=== PATIENT | male | born 1965 | race Caucasian/White ===

== ENCOUNTER 2024-01-08 14:46 | Emergency (ER) | payer OTHER, SELFPAY ==
[2024-01-08 14:54] VITALS: BP 147/83
[2024-01-08] MEDS: ADACEL 0.5 ML IM (16:32)
--- NOTE | 2024-01-08 23:15 | ED.SKININJ ---
HPI-Injury
General
Chief Complaint: Skin Surface Trauma
Source: patient
Exam Limitations: none
Time Seen by Provider: 01/08/24 15:45
Nursing documentation reviewed up to this point in time: agreed with
History of Present Illness-Injury
Is this injury a work related problem?: No
Is pt an associate of [facility]/[place]?: No
Initial Injury comments:
Accidentally cut leg with chain saw. Sustained lac to left lateral proximal calf, multple small superficial abrasions to distal lateral calf and laceratioin to left lateral ankle. Incident occured just [employer]. Brought self to ED for eval.
Past History
Past History
ED Past Medical History: Other (Spinal stenosis)
ED Past Surgical History: Orthopedic
Review of Systems
Review of Systems
Allergies reviewed?: Yes
All Other Systems: ROS reviewed and negative except as documented in HPI and ROS
Constitutional: Reports no symptoms
Musculoskeletal: Reports no symptoms
Skin: Reports other (laceration x 2 to left lateral calf, multiple superficial abrasions)
Neurological: Reports no symptoms
Psychiatric: Reports no symptoms
Course
Orders/Labs/Results
Orders:
Orders
01/08/24 16:18
Tetanus/Diphth/Acelpertussis [Adacel] 0.5 ml IM .ONCE ONE
Vital Signs
Initial and Last Documented VS:
Initial Vital Signs
Temp Pulse Resp BP Pulse Ox
98.9 F 84 20 147/83 97
01/08/24 14:54 01/08/24 14:54 01/08/24 14:54 01/08/24 14:54 01/08/24 14:54
Last Documented Vital Signs
Temp Pulse Resp BP Pulse Ox
98.9 F 84 20 147/83 97
01/08/24 14:54 01/08/24 14:54 01/08/24 14:54 01/08/24 14:54 01/08/24 14:54
ED Attending Note
-
Portions of this chart may have been created with voice recognition software.� Occasional wrong word or��sound alike� substitutions may have occurred due to the inherent limitations of voice recognition software.
Discharge Plan
Departure
Patient Disposition: Home (Routine Discharge)
Date of Disposition: 01/08/24
Time of Disposition: 16:19
Patient with high blood pressure during this ER visit?: No
Condition: Good
Covid-19: Not Applicable
Discharge Problem:
Laceration of leg
Instructions: Laceration Repair With Stitches (DC)
Prescriptions:
No Action
docusate sodium 100 mg Capsule
100 mg PO BID Qty: 30 0RF
pregabalin 75 mg Capsule
75 mg PO Q12H Qty: 15 0RF
Rx Instructions:
Take twice a day for 5 days, then once daily for 5 days, then STOP.
famotidine 20 mg Tablet
20 mg PO HS Qty: 30 0RF
Rx Instructions:
Take nightly while on post-op pain meds to prevent GI upset.
oxycodone 5 mg Tablet
5 - 10 mg PO Q6H PRN (Reason: moderate-severe pain) Qty: 30 0RF
Rx Instructions:
1 tab for moderate pain, 2 if severe.
Dx lami
sennosides [Senna Lax] 8.6 mg Tablet
17.2 mg PO BID Qty: 30 0RF
acetaminophen [Pain Relief ES (acetaminophen)] 500 mg Tablet
1,000 mg PO Q6H Qty: 60 0RF
Rx Instructions:
DO NOT exceed >4000 mg daily.
ondansetron HCl 4 mg tablet
4 mg PO Q6H PRN (Reason: nausea and vomiting) Qty: 30 0RF
Rx Instructions:
Can take 1/2 hour prior to Oxycodone if experiencing recurrent nausea.
cephalexin 500 mg tablet
500 mg PO QID Qty: 20 0RF
Saccharomyces boulardii [Florastor] 250 mg capsule
250 mg PO BID Qty: 10 0RF
Rx Instructions:
Over the counter. Take while on antibiotic.
If unavailable, choose a different probiotic.
tamsulosin [Flomax] 0.4 mg capsule
0.4 mg PO DAILY Qty: 20 0RF
Activity Restrictions/Additional Instructions:
Sutures can be removed by your family doctor in 7-10 days.
Interventions
Interventions:
*Risk Screen - Suicide Last Done: 01/08/24 14:59
*General Assessment Last Done: 01/08/24 14:59
*Neglect/Abuse Screening Last Done: 01/08/24 14:59
*ED COVID-19 Vaccine History Last Done: 01/08/24 14:59
*Nursing Disposition Last Done: 01/08/24 16:46
ED-Skin Assessment Last Done: 01/08/24 16:08
Discharge Date and Time
Discharge Date/Time: 01/08/24 16:47
Print Language: ARABIC
== END 2024-01-08 16:47 | disposition home or self-care (01) ==
LOC: EMR 14:46
PROVIDERS: EMERGENCY PHYSICIAN Emergency Medicine; FAMILY PHYSICIAN Nurse Practitioner
DX: S81.812A Laceration without foreign body, left lower leg, initial encounter (principal); W29.3XXA Contact with powered garden and outdoor hand tools and machinery, initial encounter; Z23 Encounter for immunization
CPT/HCPCS: 99282; 90471; 90715

== ENCOUNTER → 2024-02-19 16:08 | Outpatient (REF) | payer OTHER, SELFPAY | LOC: HWRAD 16:08 | PROVIDERS: ATTENDING PHYSICIAN Nurse Practitioner Family | DX: S81.812A Laceration without foreign body, left lower leg, initial encounter (principal) | CPT/HCPCS: 73610 ==

== ENCOUNTER 2024-06-17 04:50 | Emergency (ER) | payer OTHER, SELFPAY ==
[2024-06-17 04:54] VITALS: BP 190/85; BMI 31.5
[2024-06-17 05:00] VITALS: BP 181/81
[2024-06-17 05:28] LABS: % Basophils 0.3 % (0-2); % Eosinophils 2.4 % (0-6); % Immature Granulocytes 0.3 % (0-0.5); % Lymphocytes 38.1 % (20.5-51.1); % Monocytes 8.1 % (1.7-9.3); % Neutrophils 50.8 % (42.2-75.2); Absolute Eosinophils 0.1 10^3/uL (0-0.7); Absolute Lymphocytes 1.3 10^3/uL (1.2-3.4); Absolute Monocytes 0.3 10^3/uL (0.1-0.6); Absolute Neutrophils 1.7 10^3/uL (1.4-6.5); Hematocrit 42.6 % (39.0-52.0); Hemoglobin 14.8 g/dL (13.0-18.0); Mean Corp Hgb Conc. 34.7 g/dL (33.0-37.0); Mean Corpuscular Hgb 30.6 pg (27.0-31.0); Mean Corpuscular Volume 88.2 fL (80.0-94.0); Mean Platelet Volume 8.7 fL (7.4-10.4); Nucleated Red Blood Cells % 0 % (-); Platelet Count 188 10^3/uL (130-400); Red Blood Cell Count 4.83 10^6/uL (4.70-6.10); Red Cell Dist. Width 11.8 % (11.5-14.5); White Blood Cell Count 3.3 10^3/uL (4.8-10.8)
[2024-06-17 05:42] LABS: ALT (SGPT) 30 U/L (0-50); AST (SGOT) 28 U/L (17-59); Albumin 4.3 g/dl (3.5-5.0); Alkaline Phosphatase 70 U/L (38-126); Blood Urea Nitrogen 25 mg/dl (9-20); Calcium 8.9 mg/dl (8.4-10.2); Carbon Dioxide 26 mmol/L (22-30); Chloride 107 mmol/L (98-107); Estimated Creatinine Clearance 120 ml/min; Glucose 121 mg/dl (70-99); Potassium 4.4 mmol/L (3.5-5.1); Sodium 142 mmol/L (135-145); Total Bilirubin 0.8 mg/dl (0.2-1.3); Total Protein 6.8 g/dl (6.3-8.2); eGFR > 60.00
[2024-06-17 05:45] LABS: Troponin I < 0.012 ng/ml
--- NOTE | 2024-06-17 05:57 | ED.GENMED ---
History of Present Illness
General
Chief Complaint: Chest Pain
Time Seen by Provider: 06/17/24 04:59
History of Present Illness
History of Present Illness:
59-year-old male with no reported past medical history presenting to the emergency department for intermittent chest pain. Patient reports since yesterday afternoon he has been having intermittent chest pain. Pain comes about every 5 minutes, only
lasts a few seconds and then resolves on its own. Denies exertional component. Denies ever having this in the past. Denies difficulty breathing. Denies any injury to the chest. Does note family history of cardiac disease, his father had several
heart attacks. Denies fever or cough. Denies any radiation of pain, with the pain located at the left side. Denies abdominal pain or GI symptoms. Denies additional acute medical complaints
Past History
Past History
ED Past Medical History: Other (Spinal stenosis)
ED Past Surgical History: Orthopedic
Phy Exam
Physical Exam
Physical Exam:
General: Well-appearing, no clinical signs of dehydration, nontoxic and in no acute distress
HEENT: protecting airway
Neck: appears supple
CV: Normal heart rate, regular rhythm
Resp: No accessory muscle use, no increased work of breathing, lungs clear to auscultation bilaterally
Abd: Soft and non-distended, no tenderness to palpation
Extremities: No deformities, no swelling, no erythema
Neuro: alert, no focal neurologic deficit
: deferred
Rectal: deferred
Psych: Normal affect
Skin: Intact
Scores
Heart Score for Chest Pain Patients
STEMI patient?: No
History: Slightly or Non-Suspicious
ECG: Normal
Age: >45 - <65 years
Risk Factors: 1 or 2 Risk Factors
Troponin: </= Normal Limit
Heart Score for Chest Pain Patients: 2
Heart Score Risk: 2.5% MACE over next 6 weeks
Course
Orders/Labs/Results
Orders:
Orders
06/17/24 04:51
Electrocardiogram (*1) Urgent
Reason for Study: Chest Pain
EKG- Treatment ONCE
06/17/24 05:11
Complete Blood Count/With Diff Urgent
Comprehensive Metabolic Panel Urgent
Troponin I Urgent
06/17/24 08:00
Troponin I Urgent
Abnormal Lab Results
06/17/24
05:11
WBC 3.3 L 10^3/uL
(4.8-10.8)
BUN 25 H mg/dl
(9-20)
Glucose 121 H mg/dl
(70-99)
06/17/24 05:11
06/17/24 05:11
Vital Signs
Initial and Last Documented VS:
Initial Vital Signs
Temp Pulse Resp BP Pulse Ox
97.8 F 63 14 190/85 96
06/17/24 04:54 06/17/24 04:54 06/17/24 04:54 06/17/24 04:54 06/17/24 04:54
Last Documented Vital Signs
Temp Pulse Resp BP Pulse Ox
97.8 F 65 35 181/81 100
06/17/24 04:54 06/17/24 05:00 06/17/24 05:00 06/17/24 05:00 06/17/24 04:55
MDM/Problems Addressed
MDM/Problems Addressed:
59-year-old male without significant past medical history presenting for left-sided chest pain. Vital signs on arrival are significant for high blood pressure.
On exam, patient resting comfortably, no acute distress or discomfort. Patient notes the pain is intermittent, not presently there. EKG obtained on arrival, sinus rhythm without acute evidence of ischemia. At this time lower suspicion for ACS,
however patient does have cardiac risk factors including family history. For this reason we will obtain laboratory analysis including troponin.
06:00 - Labs unremarkable, undetectable troponin. Patient remains stable. Given intermittent nature of pain, will obtain second troponin. Patient ultimately low risk by heart score with plan for discharge and outpatient cardiology follow-up for
potential stress testing
*EKG
Interpreted by ED Provider?: Yes
EKG Intrepretation Date: 06/17/24
EKG Intrepretation Time: 05:59
Interpretation: normal
Comparison EKG: no changes (08/01/23)
Heart Rate: 60
Rate: normal
Rhythm: sinus
Prichard: normal axis
Interval: first degree heart block
QRS Pattern: normal QRS
Ischemia: no ischemia
*Critical Care Note
Total Time (30-74mins, 75-104mins- exclusive of procedures): Not Applicable
ED Attending Note
-
Portions of this chart may have been created with voice recognition software.� Occasional wrong word or��sound alike� substitutions may have occurred due to the inherent limitations of voice recognition software.
Discharge Plan
Departure
Prescriptions:
No Action
No Current Medications
0
Referrals:
Cee Skinner CRNP [Family Provider] -
Interventions
Interventions:
*Risk Screen - Suicide Last Done: 06/17/24 04:54
*General Assessment Last Done: 06/17/24 04:54
*Neglect/Abuse Screening Last Done: 06/17/24 04:54
ED- Fall Risk Assessment Last Done: 06/17/24 04:59
*ED COVID-19 Vaccine History Last Done: 06/17/24 04:54
ED- Cardiac Assessment Last Done: 06/17/24 04:59
Discharge Date and Time
Print Language: [email or web address]
[2024-06-17 06:18] VITALS: BP 150/85
[2024-06-17 06:19] VITALS: BP 150/85
[2024-06-17 07:00] VITALS: BP 117/69
[2024-06-17 07:39] LABS: Troponin I < 0.012 ng/ml
== END 2024-06-17 07:40 | disposition home or self-care (01) ==
LOC: EMR 04:50
PROVIDERS: EMERGENCY PHYSICIAN Student in an Organized Health Care Education/Training Program; FAMILY PHYSICIAN Nurse Practitioner
DX: R07.89 Other chest pain (principal); I10 Essential (primary) hypertension; Z82.49 Family history of ischemic heart disease and other diseases of the circulatory system; M48.00 Spinal stenosis, site unspecified
CPT/HCPCS: 99283; 80053; 84484; 85025; 93005